=== PATIENT | female | born 1995 | race Caucasian/White ===

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

== ENCOUNTER 2017-08-16 08:29 | Inpatient (IN) | payer MEDICAID ==
[2017-08-16] MEDS ORDERED: OXYTOCIN/NORMAL SALINE 20 UNIT/1,000 ML RTUINJ IV PRN ×2 (08:55→15:20)
[2017-08-16] MEDS ORDERED: RINGERS SOLUTION,LACTATED 1,000 ML IV PRN (08:55)
[2017-08-16 09:09] LABS: AMNISURE (ROM) POSITIVE (NEGATIVE)
[2017-08-16 09:10] LABS: APPEARANCE,URINE SLIGHTLY-CLOUDY; BILIRUBIN,URINE NEGATIVE (NEGATIVE); COLOR,URINE YELLOW; GLUCOSE, URINE NEGATIVE (NEGATIVE); KETONES,URINE NEGATIVE (NEGATIVE); LEUKOCYTE ESTERASE,URINE SMALL (NEGATIVE); NITRITE,URINE NEGATIVE (NEGATIVE); PROTEIN,URINE NEGATIVE (NEGATIVE); URINE SPECIFIC GRAVITY 1.009; UROBILINOGEN,URINE NEGATIVE mg/dL (<2.0)
[2017-08-16 09:37] LABS: URINE AMPHETAMINES SCREEN NEGATIVE; URINE BARBITURATES SCREEN NEGATIVE; URINE BENZODIAZEPINES SCREEN NEGATIVE; URINE COCAINE SCREEN NEGATIVE; URINE MARIJUANA (THC) SCREEN NEGATIVE; URINE METHADONE SCREEN NEGATIVE; URINE PHENCYCLIDINE SCREEN NEGATIVE
[2017-08-16] MEDS ORDERED: OXYTOCIN/NORMAL SALINE 0 UNIT/0 ML RTUINJ ONE (10:09)
[2017-08-16 10:47] LABS: ABSOLUTE EOSINOPHILS # (AUTO) 0.1 10^3/uL (0.0-0.6); ABSOLUTE LYMPHOCYTES (AUTO) 1.8 10^3/uL (0.5-4.7); ABSOLUTE MONOCYTES (AUTO) 0.6 10^3/uL (0.1-1.4); ABSOLUTE NEUT (AUTO) 6.4 10^3/uL (1.7-8.2); BASOPHILS % (AUTO) 0.3 % (0-2); EOSINOPHILS % (AUTO) 0.9 % (0-6); HEMATOCRIT 32.6 % (36.0-47.0); LYMPHOCYTES % (AUTO) 19.8 % (13-45); MEAN CORPUSCULAR HGB CONC 33.8 g/dL (32.0-36.0); MEAN CORPUSCULAR VOLUME 86 fl (80-97); MONOCYTES % (AUTO) 7.2 % (3-13); PLATELET COUNT 154 10^3/uL (150-450); RED CELL DISTRIBUTION WIDTH 15.3 % (11.5-14.0); SEGMENTED NEUTROPHILS % (AUTO) 71.8 % (42-78); TOTAL CELLS COUNTED % (AUTO) 100 %; WHITE BLOOD COUNT 8.9 10^3/uL (4.0-10.5)
[2017-08-16] MEDS ORDERED: EPHEDRINE SULFATE INJ 50 MG/1 ML AMPULE ONE (12:50)
[2017-08-16] MEDS ORDERED: FENTANYL CITRATE INJ/PF 100 MCG/2 ML AMPUL ONE (12:50)
[2017-08-16] MEDS ORDERED: PHENYLEPHRINE HCL INJ/PF 10 MG/1 ML SDV ONE (12:51)
[2017-08-16] MEDS ORDERED: FENTANYL/BUPIVACAINE/NS/PF 300 MCG/150 ML RTUINJ EPI ONE (12:51)
[2017-08-16] MEDS ORDERED: LIDOCAINE 1.5%/EPINEPHRINE INJ-PF 30 ML SDV ONE (12:51)
[2017-08-16] MEDS ORDERED: BUPIVACAINE HCL 0.25 % INJ/PF (2.5 MG/1 ML) 30 ML VIAL ONE (12:51)
[2017-08-16] MEDS ORDERED: LIDOCAINE 1% INJ-PF (10 MG/ML) 30 ML SDV ONE (13:38)
[2017-08-16] MEDS ORDERED: MISOPROSTOL 0.2 MG TABLET ONE (13:38)
[2017-08-16] MEDS ORDERED: OXYTOCIN/NORMAL SALINE 20 UNIT/1,000 ML RTUINJ ONE (13:38)
--- NOTE | 2017-08-16 14:44 | Admission Physical ---
Datetime Report Generated by CPN: 08/16/2017 14:44 CURRENT ADMISSION Chief Complaint: Uterine Contractions; Suspected Ruptured Membranes Indication for Induction: Not Applicable Admit Impression : Term, Intrauterine Admit Plan: Admit to Unit; Initiate Labor Protocol; Initiate Labor Augmentation Protocol ALLERGIES Medication Allergies: No Medication Allergies: No Known Allergies (05/10/2014) Latex: No Latex Allergies OBSTETRICAL HISTORY EDC: 09/05/2017 00:00 : 3 Para: 1 Term: 1 : 0 SAB: 1 IAB: 1 Ectopic: 0 Livin Cesareans: 0 VBACs: 0 Multiple Births: 0 Gestational Diabetes: No Rh Sensitization: No Incompetent Cervix: No MYRTLE: No Infertility: No ART Treatment: No Uterine Anomaly: No IUGR: No Hx Previous C/S: No Macrosomia: No Hx Loss/Stillborn: No PIH: No Hx : No Placenta Previa/Abruption: No Depression/PP Depression: Yes PTL/PROM: No Post Hemorrhage: No Current Procedures: Ultrasound Obstetrical History Comments: G2- vaginal delivery male , pp depression no meds G3- current SEE RECORDS Alcohol: No Marijuana : No Cocaine: No Other Illicit Drugs: No Cigarettes: Never Smoker. [id number] MEDICAL HISTORY Diabetes: No Blood Transfusion: No Pulmonary Disease (Asthma, TB): No Breast Disease: No Hypertension: No Certified Wellness Program Coordinator Surgery: No Heart Disease: No Hosp/Surgery: Yes Autoimmune Disorder: No Anesthetic Complications: No Kidney Disease: No Abnormal Pap Smear: No Neuro/Epilepsy: No Psychiatric Disorders: Yes Other Medical Diseases: No Hepatitis/Liver Disease: No Significant Family History: No Varicosities/Phlebitis: No Trauma/Violence : No Thyroid Dysfunction: No Medical History Comments: pt with h/o admission for anxiety and childbirth with pp depression INFECTIOUS HISTORY Gonorrhea: No Genital Herpes: No Chlamydia: Yes Tuberculosis: No Syphilis: No Hepatitis: No HIV/AIDS Exposure: No Rash or Viral Illness: No HPV: No Infectious History Comments: h/o chlamydia 2016 PHYSICAL EXAM General: Normal HEENT: Normal Neurologic: Normal Thyroid: Deferred Heart: Normal Lungs: Normal Breast: Deferred Back: Normal Abdomen: Normal Genitourinary Exam: Normal Extremities: Normal DTRs: Deferred Pelvic Type: Adequate Vital Signs: Reviewed; Within Normal Limits VAGINAL EXAM Dilatation: 3 Effacement: 50 Station: -3 Contraction Comments: rare on admission, started [place] before pitocin started MEMBRANES Pooling: Positive FETUS A EGA: 37.1 Monitoring: External US FHR Category: Category I Estimated Weight (gm): 3200 Presentation: Vertex PLANS FOR LABOR AND DELIVERY Labor and Delivery: None Pain Management: Epidural Feeding Preference: Both Benefit of Breast Feed Discussed: Yes Circumcision: N/A INFORMED CONSENT Assignment: Manuel Pugh MD Signature: with User ID: [email or web address] : with User ID: [email or web address]
--- NOTE | 2017-08-16 15:15 | Warning Signs in Babies ---
VOD Warning Signs Datetime Report Generated by [facility]: 08/16/2017 15:15 VOD#608 -Warning Signs in Babies: Viewed with Parent(s)/Family (08/16/2017 13:04:NORTH Harp)
--- NOTE | 2017-08-16 15:18 | Warning Signs in Babies ---
VOD Warning Signs Datetime Report Generated by [facility]: 08/16/2017 15:18 VOD#608 -Warning Signs in Babies: Viewed with Parent(s)/Family (08/16/2017 14:30:Aaliyah Foy RNC)
[2017-08-16] MEDS ORDERED: BENZOCAINE/MENTHOL AEROSOL SPRAY 56 ML TOP PRN (15:20)
[2017-08-16] MEDS ORDERED: ZOLPIDEM TARTRATE 5 MG TABLET PO PRN (15:20)
[2017-08-16] MEDS ORDERED: DIPH/PERTUSS(ACELL)/TETANUS VAC/PF 0.5 ML SYR (>=10YO) IM PRN (15:20)
[2017-08-16] MEDS ORDERED: ACETAMINOPHEN WITH CODEINE #3 TABLET PO PRN ×2 (15:20)
[2017-08-16] MEDS ORDERED: MEASLES,MUMPS&RUBELLA VACC/PF 0.5 ML VIAL SUBCUT PRN (15:20)
[2017-08-16] MEDS ORDERED: DIBUCAINE 1% OINTMENT 28 GM TP PRN (15:20)
--- NOTE | 2017-08-16 15:55 | Warning Signs in Babies ---
VOD Warning Signs Datetime Report Generated by [facility]: 08/16/2017 15:55 VOD#608 -Warning Signs in Babies: Viewed with Parent(s)/Family (08/16/2017 15:49:NORTH Harp)
[2017-08-16] MEDS ORDERED: DOCUSATE SODIUM 100 MG CAPSULE ONE (17:14)
[2017-08-16] MEDS: DOCUSATE SODIUM 100 MG CAPSULE PO SCH (17:14)
[2017-08-16] MEDS: FERROUS SULFATE 325 MG TABLET PO SCH (17:14)
[2017-08-16] MEDS ORDERED: IBUPROFEN 800 MG TABLET ONE (17:14)
[2017-08-16] MEDS ORDERED: FERROUS SULFATE 325 MG TABLET PO ONE (17:14)
[2017-08-16] MEDS ORDERED: IBUPROFEN 800 MG TABLET PO SCH (22:00)
[2017-08-17] MEDS: IBUPROFEN 800 MG TABLET PO SCH ×3 (02:43→17:15)
[2017-08-17 07:32] LABS: HEMATOCRIT 29.7 % (36.0-47.0); HEMOGLOBIN 9.9 g/dL (12.0-15.5); MEAN CORPUSCULAR HEMOGLOBIN 28.8 pg (27.0-33.4); MEAN CORPUSCULAR HGB CONC 33.5 g/dL (32.0-36.0); MEAN CORPUSCULAR VOLUME 86 fl (80-97); PLATELET COUNT 149 10^3/uL (150-450); RED BLOOD COUNT 3.44 10^6/uL (3.72-5.28); RED CELL DISTRIBUTION WIDTH 15.3 % (11.5-14.0); WHITE BLOOD COUNT 13.3 10^3/uL (4.0-10.5)
[2017-08-17] MEDS: SENNOSIDES/DOCUSATE 8.6-50 MG 1 EACH TABLET PO SCH (09:18)
[2017-08-17] MEDS: FERROUS SULFATE 325 MG TABLET PO SCH ×2 (09:18→17:15)
[2017-08-17] MEDS: DOCUSATE SODIUM 100 MG CAPSULE PO SCH ×2 (09:18→17:15)
[2017-08-17] MEDS: PRENATAL VITAMIN W DHA CAPSULE PO SCH (09:18)
--- NOTE | 2017-08-17 12:10 | PDOC PROGRESS REPORT ---
Subjective-OB Progress Note for:: 08/17/17 Subjective: s/p day #1, Denies concerns, states lochia is stable, pain is well controlled, voiding without difficulty. Physical Exam (OB) Vital Signs: Temp Pulse Resp BP Pulse Ox 97.8 F 87 18 113/61 100 08/17/17 07:40 08/17/17 07:40 08/17/17 07:40 08/17/17 07:40 08/17/17 07:40 Intake & Output 08/16/17 08/17/17 08/18/17 06:59 06:59 06:59 Weight 84 kg - PIH/Pre-Eclampsia DTR's: 2 + Clonus: Negative Headache: Absent Epigastric Pain: No Visual Changes: No - Lochia Lochia Amount: Scant < 10 ml Lochia Color: Rubra/Red - Abdomen Description: Soft Hernia Present: No Fundal Description: Firm, Midline Fundal Height: u/u - u/2 Objective-Diagnostic Laboratory: 08/17/17 07:11 08/17/17 07:11 WBC 13.3 H RBC 3.44 L Hgb 9.9 L Hct 29.7 L MCV 86 MCH 28.8 MCHC 33.5 RDW 15.3 H Plt Count 149 L Assessment and Plan(PN) - Assessment and Plan (1) Acute blood loss anemia Is this a current diagnosis for this admission?: Yes Plan: ferrous sulfate increase dietary iron (2) Shoulder dystocia during labor and delivery, delivered Is this a current diagnosis for this admission?: Yes Plan: discuss (3) Normal vaginal delivery Is this a current diagnosis for this admission?: Yes Plan: routine pp care - Time Spent with Patient Time with patient: Less than 15 minutes Critical Time spent with patient: Less than 15 minutes Medications reviewed and adjusted accordingly: Yes - Disposition Anticipated Discharge: Home Within: within 24 hours
[2017-08-18] MEDS: IBUPROFEN 800 MG TABLET PO SCH ×2 (01:55→09:26)
--- NOTE | 2017-08-18 08:30 | PDOC DISCHARGE SUMMARY ---
Final Diagnosis Discharge Date: 08/18/17 - Final Diagnosis (1) Acute blood loss anemia Is this a current diagnosis for this admission?: Yes (2) Shoulder dystocia during labor and delivery, delivered Is this a current diagnosis for this admission?: Yes (3) Normal vaginal delivery Is this a current diagnosis for this admission?: Yes Discharge Data - Discharge Medication Prescriptions: Docusate Sodium [Colace 100 mg Capsule] 100 mg PO BID #60 capsule Ferrous Sulfate [Feosol 325 mg Tablet] 325 mg PO BID #60 tablet Ibuprofen [Motrin 800 mg Tablet] 800 mg PO Q8A #60 tablet Home Medications: Pnv95/Iron Fum/Folic Acid [ Caplet] 1 each PO DAILY 04/09/16 Docusate Sodium [Colace 100 mg Capsule] 100 mg PO BID #60 capsule 08/17/17 Ferrous Sulfate [Feosol 325 mg Tablet] 325 mg PO BID #60 tablet 08/17/17 Ibuprofen [Motrin 800 mg Tablet] 800 mg PO Q8A #60 tablet 08/17/17 Gestational Age: 37.1 Reason(s) for Admission: Onset of Labor Procedures: NST Intrapartum Procedure(s): Spontaneous Vaginal Delivery - Diagnosis Test Laboratory: Temp Pulse Resp BP Pulse Ox 97.8 F 87 18 113/61 100 08/17/17 07:40 08/17/17 07:40 08/17/17 07:40 08/17/17 07:40 08/17/17 07:40 08/16/17 08/16/17 08/17/17 08:48 10:24 07:11 RBC 3.80 3.44 L Hgb 11.0 L 9.9 L Hct 32.6 L 29.7 L Urine Opiates Screen NEGATIVE - Discharge information/Instructions Discharge Activity: Activity As Tolerated, Pelvic Rest, No tub bath Discharge Diet: Regular Disposition: HOME, SELF-CARE Follow up with: [facility] in: 1, Weeks - hx anxiety and depression
[2017-08-18 08:38] VITALS: BP 122/79
[2017-08-18] MEDS: FERROUS SULFATE 325 MG TABLET PO SCH (09:26)
[2017-08-18] MEDS: SENNOSIDES/DOCUSATE 8.6-50 MG 1 EACH TABLET PO SCH (09:26)
[2017-08-18] MEDS: PRENATAL VITAMIN W DHA CAPSULE PO SCH (09:26)
[2017-08-18] MEDS: DOCUSATE SODIUM 100 MG CAPSULE PO SCH (09:26)
== END 2017-08-18 11:58 | disposition home or self-care (01) | DRG 775 ==
LOC: LC 08:29 → LR 09:02 → 2S 17:25
PROVIDERS: ADMIT Obstetrics & Gynecology Gynecology; ATTEND Obstetrics & Gynecology Gynecology
PROC: 10E0XZZ Delivery of Products of Conception, External Approach (ICD-10-PCS; principal; 2017-08-16)
PROC: 4A1HXCZ Monitoring of Products of Conception, Cardiac Rate, External Approach (ICD-10-PCS; 2017-08-16)
DX: O66.0 Obstructed labor due to shoulder dystocia (principal); D62 Acute posthemorrhagic anemia; O99.02 Anemia complicating childbirth; Z37.0 Single live birth; Z3A.37 37 weeks gestation of pregnancy; Z86.19 Personal history of other infectious and parasitic diseases
CPT/HCPCS: 36415; 80307; 81001; 84112; 85025; 85027; 86592; 86850; 86900; 86901; J2370; J2590; J3010; J3490

== ENCOUNTER → 2018-01-10 | Outpatient (CLI) | payer MEDICAID ==
[2018-01-10 16:20] LABS: CHLAM PCR DETECTED (NOT DETECT); GON PCR NOT DETECTED (NOT DETECT)
[2018-01-11 13:37] LABS: HEPATITIS A AB IGM Negative (Negative); HEPATITIS B CORE AB IGM Negative (Negative); HEPATITS B SURFACE ANTIGEN Negative (Negative)
[2018-01-11 17:57] LABS: HEPATITIS C VIRUS ANTIBODY <0.1 s/co ratio (0.0-0.9)
== END ==
LOC: OD 14:03
PROVIDERS: ATTEND Nurse Practitioner Family
DX: Z11.3 Encounter for screening for infections with a predominantly sexual mode of transmission (principal); Z30.09 Encounter for other general counseling and advice on contraception; Z86.19 Personal history of other infectious and parasitic diseases
CPT/HCPCS: 36415; 80074; 86592; 86701; 87491; 87591

== ENCOUNTER 2018-02-05 03:59 | Emergency (ER) | payer MEDICAID ==
[2018-02-05 04:07] VITALS: BP 127/100
--- NOTE | 2018-02-05 05:38 | ER Document Report ---
HPI - HPI Patient complains to provider of: Requesting test Pain Level: 0 Context: Pt. is a 22 year old female who is in the ED with her daughter who is currently a pt. The Pt. denies all complaints to include but no limited to CP, SOB, NVD, URI, abd pain, fever, dysuria, vaginal d/c. Pt. stated "I missed my period so I might as well get a test while I am here." PMH: none Meds: none Allergies: none - REPRODUCTIVE LMP: 12/29 Reproductive: DENIES: : Past Medical History - General Information source: Patient - Social History Smoking Status: Never Smoker Frequency of alcohol use: None Drug Abuse: None Lives with: Family Family History: CAD, Reviewed & Not Pertinent Patient has suicidal ideation: No Patient has homicidal ideation: No Renal/ Medical History: Denies: Hx Peritoneal Dialysis - Immunizations Immunizations up to date: Yes Hx Diphtheria, Pertussis, Tetanus Vaccination: Yes Vertical Provider Document - CONSTITUTIONAL Agree With Documented VS: Yes Notes: GENERAL: Alert, interacts well. No acute distress. HEAD: Normocephalic, atraumatic. EYES: Pupils equal, round, and reactive to light. Extraocular movements intact. ENT: Oral mucosa moist, tongue midline. NECK: Full range of motion. Supple. Trachea midline. LUNGS: Clear to auscultation bilaterally, no wheezes, rales, or rhonchi. No respiratory distress. HEART: Regular rate and rhythm. No murmur ABDOMEN: Soft, non-tender. Non-distended. Bowel sounds present in all 4 quadrants. EXTREMITIES: Moves all 4 extremities spontaneously. No edema, normal radial and dorsalis pedis pulses bilaterally. No cyanosis. BACK: no cervical, thoracic, lumbar midline tenderness. No saddle anesthesia, normal distal neurovascular exam. NEUROLOGICAL: Alert and oriented x3. Normal speech. cranial nerves II through XII grossly intact PSYCH: Normal affect, normal mood. SKIN: Warm, dry, normal turgor. No rashes or lesions noted. - INFECTION CONTROL TRAVEL OUTSIDE OF THE [place] IN LAST 30 DAYS: No Course - Re-evaluation Re-evalutation: 02/05/18 05:49 HCG negative. Discussed with patient at bedside. - Vital Signs Vital signs: Temp Pulse Resp BP Pulse Ox 97.9 F 81 16 127/100 H 99 02/05/18 04:06 02/05/18 04:06 02/05/18 04:06 02/05/18 04:06 02/05/18 04:06 Discharge - Discharge Clinical Impression: test negative Condition: Stable Disposition: HOME, SELF-CARE Additional Instructions: Your test in the emergency room is negative. Please follow-up with your primary care provider. Referrals: JAME BISWAS NP [Primary Care Provider] - Follow up as needed
== END 2018-02-05 08:40 | disposition home or self-care (01) ==
LOC: ER 03:59
DX: Z32.02 Encounter for pregnancy test, result negative (principal)
CPT/HCPCS: 81025; 99284

== ENCOUNTER → 2018-04-03 | Outpatient (CLI) | payer MEDICAID | LOC: LAB 12:20 | PROVIDERS: ATTEND Nurse Practitioner Acute Care | DX: R30.0 Dysuria (principal) | CPT/HCPCS: 87086; 87088; 87186 ==

== ENCOUNTER 2019-02-16 05:56 | Inpatient (IN) | payer MEDICAID ==
[2019-02-16] MEDS ORDERED: RINGERS SOLUTION,LACTATED 1,000 ML IV PRN (06:13)
[2019-02-16] MEDS ORDERED: MISOPROSTOL 0.2 MG TABLET ONE (06:15)
[2019-02-16] MEDS ORDERED: LIDOCAINE 1% INJ-PF (10 MG/ML) 30 ML SDV ONE (06:15)
[2019-02-16] MEDS ORDERED: OXYTOCIN 10 UNIT/ML VIAL ONE (06:15)
[2019-02-16] MEDS ORDERED: PENICILLIN G-K 5 MILLION UNIT VIAL ONE (06:15)
[2019-02-16] MEDS ORDERED: OXYTOCIN/NORMAL SALINE 20 UNIT/1,000 ML RTUINJ ONE (06:15)
[2019-02-16 06:33] LABS: ABSOLUTE EOSINOPHILS # (AUTO) 0.1 10^3/uL (0.0-0.6); ABSOLUTE LYMPHOCYTES (AUTO) 2.3 10^3/uL (0.5-4.7); ABSOLUTE MONOCYTES (AUTO) 0.7 10^3/uL (0.1-1.4); ABSOLUTE NEUT (AUTO) 6.1 10^3/uL (1.7-8.2); BASOPHILS % (AUTO) 0.3 % (0-2); EOSINOPHILS % (AUTO) 0.7 % (0-6); HEMATOCRIT 32.9 % (36.0-47.0); HEMOGLOBIN 10.9 g/dL (12.0-15.5); MEAN CORPUSCULAR HEMOGLOBIN 27.5 pg (27.0-33.4); MEAN CORPUSCULAR HGB CONC 33.1 g/dL (32.0-36.0); MEAN CORPUSCULAR VOLUME 83 fl (80-97); MONOCYTES % (AUTO) 7.4 % (3-13); PLATELET COUNT 159 10^3/uL (150-450); RED BLOOD COUNT 3.95 10^6/uL (3.72-5.28); RED CELL DISTRIBUTION WIDTH 16.6 % (11.5-14.0); SEGMENTED NEUTROPHILS % (AUTO) 66.6 % (42-78); TOTAL CELLS COUNTED % (AUTO) 100 %; WHITE BLOOD COUNT 9.1 10^3/uL (4.0-10.5)
--- NOTE | 2019-02-16 06:39 | Admission Physical ---
Datetime Report Generated by CPN: 02/16/2019 06:38 CURRENT ADMISSION Chief Complaint: Uterine Contractions Indication for Induction: Not Applicable Admit Impression : Term, Intrauterine Admit Plan: Initiate Labor Protocol ALLERGIES Medication Allergies: No Medication Allergies: No Known Allergies (08/16/2017) Latex: No Latex Allergies OBSTETRICAL HISTORY EDC: 02/22/2019 00:00 : 4 Para: 2 Term: 2 Livin Depression/PP Depression: Yes Current Procedures: Ultrasound; NST Obstetrical History Comments: g1, sab at 6 weeks g2-2016, 41+2 weeks, , female, 7lb 8oz, shoulder dystocia resolved with manju and sp pressure g3-2017, 37+1 weeks, , female, 7lb 0oz g4-current , close spaced pregnancies MEDICAL HISTORY Hosp/Surgery: Yes Other Medical Diseases: Yes Medical History Comments: anemia, childbirth x 2, depression per records INFECTIOUS HISTORY Chlamydia: Yes Infectious History Comments: chlamydia 2015 PHYSICAL EXAM General: Normal HEENT: Normal Neurologic: Normal Thyroid: Normal Heart: Normal Lungs: Normal Breast: Deferred Back: Normal Abdomen: Normal Genitourinary Exam: Normal Extremities: Normal DTRs: Normal Pelvic Type: Adequate FETUS A EGA: 39.1 PLANS FOR LABOR AND DELIVERY Labor and Delivery: None Pain Management: None Circumcision: No INFORMED CONSENT Signature: with User ID: [email or web address]
[2019-02-16] MEDS ORDERED: DIBUCAINE 1% OINTMENT 56 GM TP PRN (06:42)
[2019-02-16] MEDS ORDERED: NA PHOS,M-B/NA PHOS,DI-BA (ADULT) 133 ML ENEMA PR PRN (06:42)
[2019-02-16] MEDS ORDERED: DIPH/PERTUSS(ACELL)/TETANUS VAC/PF 0.5 ML SYR (>=10YO) IM PRN ×2 (06:42→15:00)
[2019-02-16] MEDS ORDERED: DIPHENHYDRAMINE HCL 25 MG CAPSULE PO PRN (06:42)
[2019-02-16] MEDS ORDERED: PROMETHAZINE HCL 25 MG SUPP.RECT PR PRN (06:42)
[2019-02-16] MEDS ORDERED: OXYTOCIN/NORMAL SALINE 20 UNIT/1,000 ML RTUINJ IV PRN (06:42)
[2019-02-16] MEDS ORDERED: GLYCERIN/WITCH HAZEL LEAF 1 EACH MED..WIPE TP PRN (06:42)
[2019-02-16] MEDS ORDERED: ACETAMINOPHEN WITH CODEINE #3 TABLET PO PRN (06:42)
[2019-02-16] MEDS ORDERED: BENZOCAINE/MENTHOL AEROSOL SPRAY 56 ML TOP PRN (06:42)
[2019-02-16] MEDS ORDERED: ZOLPIDEM TARTRATE 5 MG TABLET PO PRN (06:42)
[2019-02-16] MEDS ORDERED: PROMETHAZINE HCL 25 MG TABLET PO PRN (06:42)
[2019-02-16] MEDS ORDERED: PROMETHAZINE HCL INJ 25 MG/1 ML VIAL IV PRN ×2 (06:42→15:00)
[2019-02-16] MEDS ORDERED: MEASLES,MUMPS&RUBELLA VACC/PF 0.5 ML VIAL SUBCUT PRN ×2 (06:42→15:00)
[2019-02-16] MEDS ORDERED: PSEUDOEPHEDRINE HCL 30 MG TABLET PO PRN (06:42)
[2019-02-16] MEDS ORDERED: ACETAMINOPHEN 650 MG SUPP.RECT PR PRN (06:42)
[2019-02-16] MEDS ORDERED: MAGNESIUM HYDROXIDE SUSP 30 ML UDCUP PO PRN (06:42)
[2019-02-16] MEDS ORDERED: PENICILLIN G POTASSIUM 5,000,000 UNIT in DEXTROSE 5%-WATER 100 ML IV ONE (07:00)
[2019-02-16] MEDS ORDERED: IBUPROFEN 800 MG TABLET ONE (07:16)
--- NOTE | 2019-02-16 08:02 | Delivery Summary ---
Del Sum A-C Datetime Report Generated by CPN: 02/16/2019 08:02 DELIVERY PERSONNEL DELIVERY PERSONNEL: [id number] Delivery Doctor:: Manuel Pugh MD Labor and Delivery Nurse:: Amy Mendoza RNag equipment field service technician Nurse:: Courtney Zapata, RNC Nursery Nurse:: Chaparrita Lisset, TY MATERNAL INFORMATION Delivery Anesthesia: None Medications After Delivery: Pitocin Drip 20 Units/1000ml NSS Delivery QBL: 628 Delivery QBL Comment: from chux on bed, ROM moments before delivery Maternal Complications: None LABOR SUMMARY EDC: 02/22/2019 00:00 No. Babies in Womb: 1 Attempted: No Labor Anesthesia: None LABOR INFORMATION Reason for Induction: Not Applicable Onset of Labor: 02/16/2019 04:30 Complete Dilatation: 02/16/2019 06:10 Oxytocin: N/A Group B Beta Strep: positive Antibiotics # of Doses: 1 Antibiotics Time of Last Dose: 622 Name of Antibiotic Given: PCN Steroids Given: None Reason Steroids Not Administered: Not Applicable MEMBRANES Membranes Rupture Method: Spontaneous Rupture of Membranes: 02/16/2019 06:19 Length of Rupture (hr): 0.20 Amniotic Fluid Color: Clear Amniotic Fluid Amount: Small Amniotic Fluid Odor: Normal STAGES OF LABOR Stage 1 hr: 1 Stage 1 min: 40 Stage 2 hr: 0 Stage 2 min: 21 Stage 3 hr: 0 Stage 3 min: 3 Total Time in Labor hr: 2 Total Time in Labor min: 4 VAGINAL DELIVERY Episiotomy: None Laceration #1: None Laceration Extension #1: N/A Laceration Repair: Not Applicable CSECTION DELIVERY Primary Indication: N/A Secondary Indication: N/A CSection Incidence: N/A Labor: N/A Elective: N/A CSection Incision: N/A BABY A INFORMATION Infant Delivery Date/Time: 02/16/2019 06:31 Method of Delivery: Vaginal Born in Route : No : N/A Forceps: N/A Vacuum Extraction: N/A Shoulder Dystocia : No PRESENTATION/POSITION BABY A Presentation: Cephalic Cephalic Presentation: Vertex Vertex Position: Right Occipital Anterior Breech Presentation: N/A PLACENTA INFORMATION BABY A Placenta Delivery Time : 02/16/2019 06:34 Placenta Method of Delivery: Spontaneous Placenta Status: Delivered SCORES BABY A Heart Rate 1 min: >100 bpm Resp Effort 1 min: Good Cry Reflex Irritability 1 min: Cough or Sneeze or Pulls Away Muscle Tone 1 min: Active Motion Color 1 min: Blue/Pale Resuscitation Effort 1 min: Tactile Stimulation SCORE 1 MIN: 8 Heart Rate 5 min: >100 bpm Resp Effort 5 min: Good Cry Reflex Irritability 5 min: Cough or Sneeze or Pulls Away Muscle Tone 5 min: Active Motion Color 5 min: Body Sylvester, Extremities Blue SCORE 5 MIN: 9 INFORMATION BABY A Gestational Age at Delivery: 39.1 Gestational Status: Full Term- 39- 40.6 Weeks Infant Outcome : Liveborn Infant Condition : Stable Sex: Male IDENTIFICATION BABY A Verification Date/Time: 02/16/2019 06:42 ID Band Number: [id number] Mother's Name Verified: Yes Infant RN Verifying : Gabriela Mendoza, RN Additional Verifying Personnel: Lamonte Ryan, RN WEIGHT/LENGTH BABY A Birthweight (gm): 3963 Weight (lb): 8 Weight (oz): 12 Infant Length (in): 21.25 Length (cm): 53.98 CORD INFORMATION BABY A No. Cord Vessels: 3 Nuchal Cord : N/A Cord Blood Taken: Yes-For Storage (Mom's Blood type +) ASSESSMENT BABY A Physical Findings- Other: See full nursery career placement specialist Respirations: Appears Normal Skin to Skin: Yes Hydraulic Operator/ALS Called : No Care By: Gerard Darling RN Transferred To: Remains with Mother BABY B INFORMATION : N/A SIGNATURES Signature: with User ID: [email or web address]
[2019-02-16] MEDS: FAMOTIDINE 20 MG TABLET PO SCH ×2 (09:15→21:23)
[2019-02-16] MEDS: FERROUS SULFATE 325 MG TABLET PO SCH ×2 (09:15→18:25)
[2019-02-16] MEDS: SENNOSIDES/DOCUSATE 8.6-50 MG 1 EACH TABLET PO SCH (09:15)
[2019-02-16] MEDS: DOCUSATE SODIUM 100 MG CAPSULE PO SCH ×2 (09:15→18:25)
[2019-02-16] MEDS: PRENATAL VITAMIN W DHA CAPSULE PO SCH (09:15)
[2019-02-16 10:15] LABS: APPEARANCE,URINE CLEAR; BILIRUBIN,URINE NEGATIVE (NEGATIVE); COLOR,URINE RED; GLUCOSE, URINE 50 mg/dL (NEGATIVE); KETONES,URINE TRACE mg/dL (NEGATIVE); LEUKOCYTE ESTERASE,URINE TRACE (NEGATIVE); NITRITE,URINE NEGATIVE (NEGATIVE); PROTEIN,URINE 100 mg/dL (NEGATIVE); URINE SPECIFIC GRAVITY 1.006; UROBILINOGEN,URINE NEGATIVE mg/dL (<2.0)
[2019-02-16 10:51] LABS: URINE AMPHETAMINES SCREEN NEGATIVE; URINE BARBITURATES SCREEN NEGATIVE; URINE BENZODIAZEPINES SCREEN NEGATIVE; URINE COCAINE SCREEN NEGATIVE; URINE MARIJUANA (THC) SCREEN NEGATIVE; URINE METHADONE SCREEN NEGATIVE; URINE PHENCYCLIDINE SCREEN NEGATIVE
[2019-02-16] MEDS ORDERED: PENICILLIN G POTASSIUM 2,500,000 UNIT in DEXTROSE 5%-WATER 50 ML IV SCH (11:00)
[2019-02-16] MEDS: IBUPROFEN 800 MG TABLET PO SCH ×2 (13:40→21:23)
[2019-02-17] MEDS: IBUPROFEN 800 MG TABLET PO SCH ×3 (05:35→21:06)
[2019-02-17 06:46] LABS: HEMATOCRIT 25.7 % (36.0-47.0); MEAN CORPUSCULAR HGB CONC 33.8 g/dL (32.0-36.0); MEAN CORPUSCULAR VOLUME 83 fl (80-97); PLATELET COUNT 130 10^3/uL (150-450); RED CELL DISTRIBUTION WIDTH 16.6 % (11.5-14.0); WHITE BLOOD COUNT 10.2 10^3/uL (4.0-10.5)
[2019-02-17 06:55] LABS: HEMOGLOBIN 8.7 g/dL (12.0-15.5)
[2019-02-17] MEDS: FAMOTIDINE 20 MG TABLET PO SCH ×2 (09:44→21:07)
[2019-02-17] MEDS: PRENATAL VITAMIN W DHA CAPSULE PO SCH (09:44)
[2019-02-17] MEDS: FERROUS SULFATE 325 MG TABLET PO SCH ×2 (09:44→17:48)
[2019-02-17] MEDS: SENNOSIDES/DOCUSATE 8.6-50 MG 1 EACH TABLET PO SCH (09:44)
[2019-02-17] MEDS: DOCUSATE SODIUM 100 MG CAPSULE PO SCH ×2 (09:44→17:48)
--- NOTE | 2019-02-17 15:05 | PDOC PROGRESS REPORT ---
Subjective-OB Progress Note for:: 02/17/19 Subjective: reports bleeding slowing, pain controlled with current meds, denies needs Physical Exam (OB) Vital Signs: Temp Pulse Resp BP Pulse Ox 98.2 F 73 18 106/50 L 100 02/17/19 07:12 02/17/19 07:12 02/17/19 07:12 02/17/19 07:12 02/17/19 07:12 - Abdomen Description: Soft Hernia Present: No Fundal Description: Firm, Midline Fundal Height: u/u - u/2 - Abdominal Distension: No distension Tenderness: Nontender - Extremities Lower extremities: Shwetha's sign - neg Calf: Normal, Nontender Objective-Diagnostic Laboratory: 02/17/19 06:29 02/17/19 06:29 WBC 10.2 RBC 3.10 L Hgb 8.7 L D Hct 25.7 L MCV 83 MCH 28.0 MCHC 33.8 RDW 16.6 H Plt Count 130 L Assessment and Plan(PN) - Time Spent with Patient Time with patient: Less than 15 minutes - Disposition Anticipated Discharge: Home Within: within 24 hours
[2019-02-18] MEDS: IBUPROFEN 800 MG TABLET PO SCH (06:14)
[2019-02-18 08:28] VITALS: BP 111/54
[2019-02-18] MEDS: FAMOTIDINE 20 MG TABLET PO SCH (09:55)
[2019-02-18] MEDS: PRENATAL VITAMIN W DHA CAPSULE PO SCH (09:55)
[2019-02-18] MEDS: DOCUSATE SODIUM 100 MG CAPSULE PO SCH (09:55)
[2019-02-18] MEDS: SENNOSIDES/DOCUSATE 8.6-50 MG 1 EACH TABLET PO SCH (09:55)
[2019-02-18] MEDS: FERROUS SULFATE 325 MG TABLET PO SCH (09:55)
--- NOTE | 2019-02-18 11:16 | PDOC DISCHARGE SUMMARY ---
Impression - Admit/DC Date/PCP Admission Date/Primary Care Provider: 02/16/19 06:14 RONALD DEVRIES NP Discharge Date: 02/18/19 - Discharge Diagnosis (1) Acute blood loss anemia Is this a current diagnosis for this admission?: Yes (2) Normal vaginal delivery Is this a current diagnosis for this admission?: Yes (3) Anemia complicating , third trimester Is this a current diagnosis for this admission?: Yes - Additional Information Resuscitation Status: Full Code Discharge Diet: As Tolerated, Regular Discharge Activity: Activity As Tolerated, Balance Activity w/Rest, No Lifting Over 10 Pounds, Pelvic Rest, No tub bath, Walk Frequently Referrals: RONALD DEVRIES NP [Primary Care Provider] - Prescriptions: Ibuprofen [Motrin 800 mg Tablet] 800 mg PO Q8HP PRN #20 tablet PRN Reason: Abdominal Cramping Docusate Sodium [Colace 100 mg Capsule] 100 mg PO BID #60 capsule Ferrous Sulfate [Feosol 325 mg Tablet] 325 mg PO BID #60 tablet Home Medications: Pnv95/Iron Fum/Folic Acid [ Caplet] 1 each PO DAILY 04/09/16 Ibuprofen [Motrin 800 mg Tablet] 800 mg PO Q8A #60 tablet 08/17/17 Docusate Sodium [Colace 100 mg Capsule] 100 mg PO BID #60 capsule 02/18/19 Ferrous Sulfate [Feosol 325 mg Tablet] 325 mg PO BID #60 tablet 02/18/19 Ibuprofen [Motrin 800 mg Tablet] 800 mg PO Q8HP PRN #20 tablet 02/18/19 Results Laboratory Results: WBC 10.2 10^3/uL (4.0-10.5) 02/17/19 06:29 RBC 3.10 10^6/uL (3.72-5.28) L 02/17/19 06:29 Hgb 8.7 g/dL (12.0-15.5) L D 02/17/19 06:29 Hct 25.7 % (36.0-47.0) L 02/17/19 06:29 MCV 83 fl (80-97) 02/17/19 06:29 MCH 28.0 pg (27.0-33.4) 02/17/19 06:29 MCHC 33.8 g/dL (32.0-36.0) 02/17/19 06:29 RDW 16.6 % (11.5-14.0) H 02/17/19 06:29 Plt Count 130 10^3/uL (150-450) L 02/17/19 06:29 Lymph % (Auto) 25.0 % (13-45) 02/16/19 06:24 Bacon % (Auto) 7.4 % (3-13) 02/16/19 06:24 Eos % (Auto) 0.7 % (0-6) 02/16/19 06:24 Baso % (Auto) 0.3 % (0-2) 02/16/19 06:24 Absolute Neuts (auto) 6.1 10^3/uL (1.7-8.2) 02/16/19 06:24 Absolute Lymphs (auto) 2.3 10^3/uL (0.5-4.7) 02/16/19 06:24 Absolute Monos (auto) 0.7 10^3/uL (0.1-1.4) 02/16/19 06:24 Absolute Eos (auto) 0.1 10^3/uL (0.0-0.6) 02/16/19 06:24 Absolute Basos (auto) 0.0 10^3/uL (0.0-0.2) 02/16/19 06:24 Seg Neutrophils % 66.6 % (42-78) 02/16/19 06:24 Urine Color RED 02/16/19 10:00 Urine Appearance CLEAR 02/16/19 10:00 Urine pH 7.0 (5.0-9.0) 02/16/19 10:00 Ur Specific [place] 1.006 02/16/19 10:00 Urine Protein 100 mg/dL (NEGATIVE) H 02/16/19 10:00 Urine Glucose (UA) 50 mg/dL (NEGATIVE) H 02/16/19 10:00 Urine Ketones TRACE mg/dL (NEGATIVE) H 02/16/19 10:00 Urine Blood LARGE (NEGATIVE) H 02/16/19 10:00 Urine Nitrite NEGATIVE (NEGATIVE) 02/16/19 10:00 Urine Bilirubin NEGATIVE (NEGATIVE) 02/16/19 10:00 Urine Urobilinogen NEGATIVE mg/dL (<2.0) 02/16/19 10:00 Ur Leukocyte Esterase TRACE (NEGATIVE) H 02/16/19 10:00 Urine Ascorbic Acid NEGATIVE (NEGATIVE) 02/16/19 10:00 Urine Opiates Screen NEGATIVE 02/16/19 10:00 Urine Methadone Screen NEGATIVE 02/16/19 10:00 Ur Barbiturates Screen NEGATIVE 02/16/19 10:00 Ur Phencyclidine Scrn NEGATIVE 02/16/19 10:00 Ur Amphetamines Screen NEGATIVE 02/16/19 10:00 U Benzodiazepines Scrn NEGATIVE 02/16/19 10:00 Urine Cocaine Screen NEGATIVE 02/16/19 10:00 U Marijuana (THC) Screen NEGATIVE 02/16/19 10:00 RPR NONREACTIVE (NONREACTIVE) 02/16/19 06:24 Blood Type A POSITIVE 02/16/19 06:24 Antibody Screen NEGATIVE 02/16/19 06:24
== END 2019-02-18 13:13 | disposition home or self-care (01) | DRG 806 ==
LOC: LC 05:56 → LR 06:14 → 2S 08:50
PROVIDERS: ADMIT Obstetrics & Gynecology Gynecology; ATTEND Obstetrics & Gynecology Gynecology
PROC: 10E0XZZ Delivery of Products of Conception, External Approach (ICD-10-PCS; principal; 2019-02-16)
DX: O99.824 Streptococcus B carrier state complicating childbirth (principal); D62 Acute posthemorrhagic anemia; O99.344 Other mental disorders complicating childbirth; F32.9 Major depressive disorder, single episode, unspecified; O99.02 Anemia complicating childbirth; Z37.0 Single live birth; Z86.19 Personal history of other infectious and parasitic diseases; Z3A.39 39 weeks gestation of pregnancy
CPT/HCPCS: 36415; 80307; 81005; 85025; 85027; 86592; 86850; 86900; 86901; J2540; J2590; J3490; J7060